=== PATIENT | male | born 1965 | race Caucasian/White ===

== ENCOUNTER 2017-05-26 09:36 | Day surgery (SDC) | payer BC ==
[2017-05-26] MEDS ORDERED: PROPOFOL 10 MG/ML VIAL IV ONE (09:37)
[2017-05-26] MEDS ORDERED: MIDAZOLAM HCL 2MG/2ML VIAL IV ONE (09:37)
[2017-05-26] MEDS ORDERED: LIDOCAINE 2% MDV (20MG/ML) 20ML VIAL IV ONE (09:37)
--- NOTE | 2017-05-27 10:00 | Operative Note ---
Dictated by Dr. Robbie Cortez DATE OF SURGERY: 05/26/2017 PREOPERATIVE DIAGNOSIS: Screening colonoscopy for average risk. POSTOPERATIVE DIAGNOSIS: Diverticulosis. OPERATION: Screening COLONOSCOPY. PERFORMING PHYSICIAN: Curt Bustamante DO ASSISTING PHYSICIAN: Dr. Robbie Cortez INDICATIONS: This is a patient who was born in 1966 here for his first colonoscopy scheduled for screening. The patient does not report any family history of polyps or colon cancer. Denies any GI symptoms. No abdominal pain, diarrhea, or constipation. The patient is noted to be properly prepped. PROCEDURE: Procedure was discussed with patient in detail with risks and benefits given as well as alternatives to procedure. Consent for both colonoscopy and anesthesia was obtained, and the patient was then taken to the endoscopy unit where a timeout was performed. The patient was then placed on his left lateral side after a blood pressure was obtained, and patient was monitored with the blood pressure cuff, ECG, and pulse oximetry. The patient was then moderately sedated by nurse bead picker with [facility] and once confirmed that he was moderately sedated, a rectal examination was performed with no abnormalities noted. After that, an Olympus 180 colonoscope was then properly lubricated and inserted into the rectum and then fluid and fecal matter was then appropriately suctioned and cleared out. The scope was then advanced without difficulty to the cecum. Once in the cecum, photo documentation was taken of the appendiceal orifice and ileocecal valve. The terminal ileum was then intubated and photo documentation made. The scope was then retroflexed within the cecum showing no abnormalities. Then the colonoscope was then withdrawn again utilizing suction to remove any fluid or fecal material and irrigation to clean off any areas to look closer. There was diverticulosis appreciated both in ascending colon and sigmoid colon which would be just described as mild. There were no other abnormalities or masses or any other severe pathology appreciated and no polyps seen. Retroflexion was done once the scope was withdrawn to the rectum visualizing the rectal and anal area with no abnormalities appreciated. The scope was then withdrawn and the patient then recovered. The patient tolerated the procedure very well with no complications. No blood loss to report. IMPRESSION: Diverticulosis with no polyps appreciated. Overall normal colonoscopy. RECOMMENDATIONS: I recommend that the patient's next colonoscopy be done in 10 years. Attending physician was present for the entire procedure with recommendations made. As always, thank you for allowing me to participate in the care of your patient. CC: Dr. Lay FLORES
== END 2017-05-26 13:07 | disposition home or self-care (01) ==
LOC: HOP 09:36
PROVIDERS: ATTEND Internal Medicine Gastroenterology
DX: Z12.11 Encounter for screening for malignant neoplasm of colon (principal); K57.30 Diverticulosis of large intestine without perforation or abscess without bleeding; I10 Essential (primary) hypertension
CPT/HCPCS: 00740; G0121